=== PATIENT | female | born 1930 | race Asian ===

== ENCOUNTER 2019-06-20 19:04 | Emergency (ER) | payer MEDICARE, OTHER ==
[~2019-06-20] VITALS: Ht 157.5 cm; Wt 43.5 kg
[2019-06-20 20:07] VITALS: BP 122/72
--- NOTE | 2019-06-20 20:07 | NUR ---
PT CAME TO ER WITH DAUGHTER C/O RIGHT HIP PAIN. PT STATES THAT SHE DID NOT FALL. STATES IT STARTED HURTING LAST NIGHT AND ITCHING. AAOX4. 2 SMALL BUMPS NOTED. MINIMAL LOCAL REDNESS IN THE AREA. WILL CONTINUE TO MONITOR.
--- NOTE | 2019-06-20 20:32 | NUR ---
PATIENT WHEELED TO CT [facility]
--- NOTE | 2019-06-20 21:37 | NUR ---
Patient discharged to home in stable condition. Written and verbal after care instructions given. Patient verbalizes understanding of instruction.
== END 2019-06-20 21:39 | disposition home or self-care (01) ==
LOC: ER 19:12
DX: M25.551 Pain in right hip (principal); M54.5 Low back pain; I10 Essential (primary) hypertension; E78.00 Pure hypercholesterolemia, unspecified; Z85.028 Personal history of other malignant neoplasm of stomach

== ENCOUNTER 2019-12-01 19:30 | Emergency (ER) | payer MEDICARE, OTHER ==
[~2019-12-01] VITALS: Ht 152.4 cm; Wt 43.1 kg
[2019-12-01] MEDS ORDERED: TDAP [DIPH/PERTUSSIS/TET] 0.5 ML VIAL IM ONE ×2 (20:07→20:30)
[2019-12-01] MEDS ORDERED: LIDOCAINE /MPF 1% VIAL 5 ML VIAL ONE (20:30)
--- NOTE | 2019-12-01 20:43 | NUR ---
ALIYAH AARON PAC AT THE BED SIDE FOR LACERATION CARE
--- NOTE | 2019-12-01 21:14 | NUR ---
pt received sutures by ALIYAH AARON at the bed side. good skin care on the L ring finger laceration provided , area was covered with dry dressing and finger splint was provided. TDAP was administered. pt medically stable for discharge, Patient discharged to home in stable condition. Rx and Written and verbal after care instructions given to the daughter. Patient and daughter verbalized understanding of instruction. pt was assisted to the car in stable condision. daughter was instructed to bring the mom back to the ER or schedule an appoitment w/ the PCP in 48 hrs for wound check and in 7 days for suture removal.
[2019-12-01 21:19] VITALS: BP 131/88
== END 2019-12-01 21:20 | disposition home or self-care (01) ==
LOC: ER 19:32
DX: S61.214A Laceration without foreign body of right ring finger without damage to nail, initial encounter (principal); I10 Essential (primary) hypertension; E78.00 Pure hypercholesterolemia, unspecified; Z85.028 Personal history of other malignant neoplasm of stomach; W26.8XXA Contact with other sharp object(s), not elsewhere classified, initial encounter; Y93.89 Activity, other specified; Y92.89 Other specified places as the place of occurrence of the external cause; Y99.8 Other external cause status
CPT/HCPCS: 12002; 90471; 90715; 99283; J3490

== ENCOUNTER 2019-12-03 19:31 | Emergency (ER) | payer MEDICARE, OTHER ==
[~2019-12-03] VITALS: Ht 152.4 cm; Wt 43.1 kg
[2019-12-03 19:31] VITALS: BP 122/71
--- NOTE | 2019-12-03 20:25 | NUR ---
R INDEX FINGER WOUND CARE DONE BY SUNIL MARTINES.
== END 2019-12-03 20:34 | disposition home or self-care (01) ==
LOC: ER 19:34
DX: S61.412D Laceration without foreign body of left hand, subsequent encounter (principal); I10 Essential (primary) hypertension; E78.00 Pure hypercholesterolemia, unspecified; X58.XXXD Exposure to other specified factors, subsequent encounter

== ENCOUNTER 2019-12-05 08:41 | Emergency (ER) | payer MEDICARE, OTHER ==
[~2019-12-05] VITALS: Ht 152.4 cm; Wt 43.1 kg
[2019-12-05 08:45] VITALS: BP 131/74
--- NOTE | 2019-12-05 08:50 | NUR ---
PT SEEN AND EXAMINED BY .
[2019-12-05] MEDS ORDERED: LIDOCAINE /MPF 1% VIAL 5 ML VIAL ONE (08:53)
[2019-12-05] MEDS ORDERED: LIDOCAINE /MPF 1% VIAL 5 ML VIAL IJ ONE (09:00)
--- NOTE | 2019-12-05 09:20 | NUR ---
SUTURE REMOVED BY JOHAN RAMIREZ.
--- NOTE | 2019-12-05 09:22 | NUR ---
Patient discharged to home in stable condition. Written and verbal after care instructions given. Patient verbalizes understanding of instruction.
== END 2019-12-05 09:23 | disposition home or self-care (01) ==
LOC: ER 08:41
DX: S61.214D Laceration without foreign body of right ring finger without damage to nail, subsequent encounter (principal); I10 Essential (primary) hypertension; E78.00 Pure hypercholesterolemia, unspecified; W26.8XXD Contact with other sharp object(s), not elsewhere classified, subsequent encounter
CPT/HCPCS: 99281; J3490

== ENCOUNTER 2019-12-07 08:38 | Emergency (ER) | payer MEDICARE, OTHER ==
[~2019-12-07] VITALS: Ht 152.4 cm; Wt 44.9 kg
[2019-12-07 08:45] VITALS: BP 134/77
--- NOTE | 2019-12-07 09:04 | NUR ---
BIB SON FROM HOME FOR RIGHT 4TH DIGIT SUTURE REMOVAL C/O PAIN WHEN TOUCHED. A/OX4 SERBIAN SPEAKING, TRANSLATION DONE BY SON.
--- NOTE | 2019-12-07 09:14 | NUR ---
Patient discharged to home in stable condition. Written and verbal after care instructions given. Patient verbalizes understanding of instruction.
== END 2019-12-07 09:14 | disposition home or self-care (01) ==
LOC: ER 08:43
DX: S61.214D Laceration without foreign body of right ring finger without damage to nail, subsequent encounter (principal); I10 Essential (primary) hypertension; E78.00 Pure hypercholesterolemia, unspecified; X58.XXXD Exposure to other specified factors, subsequent encounter
CPT/HCPCS: 99281; A6403

== ENCOUNTER 2022-08-20 08:32 | Emergency (ER) | payer MEDICARE, OTHER ==
[~2022-08-20] VITALS: Ht 152.4 cm; Wt 45.4 kg
--- NOTE | 2022-08-20 08:40 | NUR ---
C/O LEFT RIB CAGE PAIN S/P GLF AT 0200 THIS MORNING GOING TO THE BATHROOM. PAIN 5/10 ON PAIN SCALE.
--- NOTE | 2022-08-20 08:57 | NUR ---
IV ESTABLISHED R AC 20G. LABS DRAWN AND COLLECTED AT BEDSIDE.
[2022-08-20 09:05] LABS: BASOPHILS % (AUTO) 0.4 % (0.0-2.0); EOSINOPHILS % (AUTO) 2.2 % (0.0-6.0); HEMATOCRIT 36 % (33-45); HEMOGLOBIN 11.8 g/dL (11.5-14.8); LYMPHOCYTES # (AUTO) 0.9 K/uL (0.8-4.8); LYMPHOCYTES % (AUTO) 15.2 % (20.0-44.0); MEAN CORPUSCULAR HGB CONC 33 g/dl (31.0-36.0); MEAN CORPUSCULAR VOLUME 98 fL (82-100); MONOCYTES # (AUTO) 0.4 K/uL (0.1-1.30); MONOCYTES % (AUTO) 6.7 % (2.0-12.0); NEUTROPHILS # (AUTO) 4.6 K/uL (1.8-8.9); NEUTROPHILS % (AUTO) 75.5 % (43.0-81.0); PLATELET COUNT (AUTO) 149 K/uL (150-450); RED BLOOD CELL COUNT(AUTO) 3.68 MIL/uL (4.0-5.2); WHITE BLOOD COUNT (AUTO) 6.1 K/uL (4.3-11.0)
[2022-08-20 09:14] LABS: CALCIUM, SERUM 8.6 mg/dL (8.5-10.1); CARBON DIOXIDE 27 mmol/L (21-32); CHLORIDE 110 mmol/L (98-107); CREATININE 0.6 mg/dL (0.6-1.3); GLUCOSE 103 mg/dL (74-106); POTASSIUM 3.8 mmol/L (3.5-5.1); SODIUM SERUM 145 mmol/L (136-145); UREA NITROGEN, BLOOD 31 mg/dL (7-18)
--- NOTE | 2022-08-20 09:24 | NUR ---
PT TAKEN TO CT VIA [facility]
--- NOTE | 2022-08-20 10:03 | NUR ---
PT RETURNED FROM CT VIA [facility]
[2022-08-20 10:55] LABS: ALBUMIN 3.4 g/dL (3.4-5.0); BILIRUBIN,DIRECT 0.1 mg/dL (0.0-0.2); BILIRUBIN,TOTAL 0.4 mg/dL (0.2-1.0)
--- NOTE | 2022-08-20 10:55 | NUR ---
URINE COLLECTED AND SENT
--- NOTE | 2022-08-20 11:04 | NUR ---
PT taken to CT scan via [facility]
[2022-08-20 11:53] LABS: COLOR,URINE YELLOW (YELLOW)
[2022-08-20 11:54] LABS: BILIRUBIN,URINE NEGATIVE (NEGATIVE); NITRITE, URINE NEGATIVE (NEGATIVE); PH,URINE 5.5 (5.0-8.0); PROTEIN,URINE NEGATIVE (NEGATIVE); UGLUCOSE NEGATIVE (NEGATIVE); UROBILINOGEN,URINE 0.2 EU/dL (0.2)
[2022-08-20 11:55] LABS: LEUKOCYTE ESTERASE ,URINE NEGATIVE (NEGATIVE)
[2022-08-20 12:20] LABS: WBC,URINE 0-2 /HPF (0-3)
--- NOTE | 2022-08-20 12:20 | NUR ---
Pt and family provided with dc instructions and verbalized understanding. Pt respirations equal and unlabored. Pt declined wheelchair assistance out of the ER. Pt ambulated with family member assist out of the ER
[2022-08-20 12:21] VITALS: BP 180/91
[2022-08-20 12:21] LABS: BACTERIA,URINE Moderate /HPF (None Seen); SQUAMOUS EPITHELIAL CELL,UR Few /HPF (None Seen)
== END 2022-08-20 12:23 | disposition home or self-care (01) ==
LOC: ER 08:36
DX: S20.212A Contusion of left front wall of thorax, initial encounter (principal); I10 Essential (primary) hypertension; R51.9 Headache, unspecified; E78.00 Pure hypercholesterolemia, unspecified; W01.0XXA Fall on same level from slipping, tripping and stumbling without subsequent striking against object, initial encounter; Y93.89 Activity, other specified; Y92.002 Bathroom of unspecified non-institutional (private) residence as the place of occurrence of the external cause; Y99.8 Other external cause status
CPT/HCPCS: 36415; 70450-TC; 71250-TC; 72125-TC; 80048-TC; 80076-TC; 81001; 83690-TC; 84484-TC; 85025-TC; 85730-TC; 87086-TC